=== PATIENT | female | born 1940 | race Caucasian/White ===

== ENCOUNTER 2018-06-23 21:00 | Inpatient (IN) ==
[2018-06-23] MEDS ORDERED: ONDANSETRON 4 MG/2 ML VIAL IV STA (23:14)
[2018-06-23] MEDS ORDERED: ASPIRIN 325 MG TABLET PO STA (23:14)
[2018-06-23 23:52] LABS: Basophils % 0.3 % (0.0-0.8); Eosinophils # 0.1 10*3/uL (0.0-0.87); Eosinophils % 1.4 % (0.00-10.9); Hematocrit 41.5 VOL% (35.7-47.0); Hemoglobin 13.9 GM/DL (12.0-16.0); Immature Granulocytes % 0.4 %; Immature Granulocytes Absolute 0.04 #; Lymphocytes # 1.8 10*3/uL (1.4-4.0); Lymphocytes % 18.1 % (21.3-54.2); Mean Corpuscular HGB Conc 33.5 GM/DL (32-36); Mean Corpuscular Hemoglobin 28 PG (27-34); Mean Corpuscular Volume 83.3 FL (87-102); Mean Platelet Volume 10.7 FL (9.6-12.0); Monocytes % 9.8 % (1.7-12.7); Neutrophils # 6.9 10*3/uL (1.4-7.4); Platelet Count 265 T/CUMM (130-400); Red Blood Count 4.98 MC/CUMM (3.8-5.5); White Blood Count 9.8 T/CUMM (4-12)
[2018-06-24 00:05] LABS: PT Patient Result 10.8 SECS; Partial Thromboplastin Time 25.9 SECS (0-40)
[2018-06-24 00:06] LABS: Alanine Aminotransferase 33 U/L (13-56); Alkaline Phosphatase 86 U/L (45-117); Aspartate Amino Transferase 31 U/L (0-37); Blood Urea Nitrogen 13 MG/DL (7-18); Calcium 8.8 MG/DL (8.5-10.1); Glucose 98 MG/DL (74-106); Osmolality,Calculated 263.5 MOS/KG (273-304); Sodium 132 MMOL/L (136-145); Total Protein 7.8 G/DL (6.4-8.3)
[2018-06-24 00:06] LABS: Apearance,Urine CLEAR (Clear); Bacteria,Urine Occasional /HPF (Few); Bilirubin,Urine Negative (Negative); Blood, Urine Negative (Negative); Glucose,Urine (UA) Negative (Negative); Ketones,Urine Negative (Negative); Nitrite,Urine Negative (Negative); Protein,Urine Negative; RBC,Urine 2 /HPF (0-4); Renal Epithelial Cells,Urine Occasional /HPF (<1); Urine Color Yellow (Yellow); Urine Urobilinogen < 2.0 EU/DL (0.2-1.0); WBC,Urine 11 /HPF (0-6)
[2018-06-24 00:12] LABS: Barbiturates Screen,Urine Negative (Negative); Benzodiazepines Screen,Urine Negative (Negative); Cannabinoid Screen,Urine Negative (Negative); Opiate Screen,Urine Negative (Negative); Phencyclidine Screen,Urine Negative (Negative)
[2018-06-24] MEDS ORDERED: LEVOFLOXACIN INJ 500 MG in PREMIX 1 EACH IV STA (00:30)
[2018-06-24] MEDS ORDERED: MORPHINE 4 MG/1 ML VIAL IV PRN (01:26)
[2018-06-24] MEDS ORDERED: ACETAMINOPHEN 325 MG TABLET PO PRN (01:26)
[2018-06-24] MEDS ORDERED: ONDANSETRON 4 MG/2 ML VIAL IV PRN (01:26)
[2018-06-24] MEDS: LEVOFLOXACIN INJ 500 MG in PREMIX 1 EACH IV SCH (02:12)
[2018-06-24] MEDS: SODIUM CHLORIDE 0.9% 1,000 ML IV SCH (02:12)
[2018-06-24 05:35] LABS: Basophils % 0.5 % (0.0-0.8); Eosinophils # 0.1 10*3/uL (0.0-0.87); Eosinophils % 1.5 % (0.00-10.9); Hemoglobin 12.9 GM/DL (12.0-16.0); Immature Granulocytes % 0.2 %; Immature Granulocytes Absolute 0.02 #; Lymphocytes # 1.8 10*3/uL (1.4-4.0); Lymphocytes % 20.2 % (21.3-54.2); Mean Corpuscular HGB Conc 33.1 GM/DL (32-36); Mean Corpuscular Hemoglobin 27 PG (27-34); Mean Corpuscular Volume 82.8 FL (87-102); Mean Platelet Volume 11.3 FL (9.6-12.0); Monocytes # 1.1 10*3/uL (0.11-0.8); Monocytes % 12.3 % (1.7-12.7); Neutrophils # 5.8 10*3/uL (1.4-7.4); Neutrophils % 65.3 % (38.7-73.9); Platelet Count 267 T/CUMM (130-400); Red Blood Count 4.71 MC/CUMM (3.8-5.5); Red Cell Distribution Width 12.7 % (9.3-17.3); White Blood Count 8.9 T/CUMM (4-12)
[2018-06-24 05:56] LABS: Albumin 3.3 G/DL (3.4-5.0); Calcium 8.3 MG/DL (8.5-10.1); Osmolality,Calculated 265.4 MOS/KG (273-304); Potassium 3.2 MMOL/L (3.5-5.1); Risk Ratio 2.78; Total Protein 6.8 G/DL (6.4-8.3); VLDL CHOLESTEROL 7.6 MG/DL
[2018-06-24] MEDS ORDERED: POTASSIUM CHLORIDE 20 MEQ TABLET PO PRN (06:03)
[2018-06-24] MEDS: POTASSIUM CHLORIDE 20 MEQ TABLET PO PRN ×4 (06:19→18:40)
[2018-06-24] MEDS: PANTOPRAZOLE 40 MG TABLET PO SCH (08:29)
[2018-06-24] MEDS: DOCUSATE SODIUM 100 MG CAPSULE PO SCH ×2 (08:29→22:12)
[2018-06-24] MEDS: ASPIRIN EC 325 MG TABLET PO SCH (08:29)
[2018-06-24] MEDS: ENOXAPARIN 40 MG/0.4 ML SYRINGE SUBCUT SCH (08:29)
[2018-06-24] MEDS ORDERED: ALPRAZolam 0.25 MG TABLET PO ONE (11:13)
[2018-06-25] MEDS: LEVOFLOXACIN INJ 500 MG in PREMIX 1 EACH IV SCH (03:43)
[2018-06-25] MEDS: SODIUM CHLORIDE 0.9% 1,000 ML IV SCH (03:43)
[2018-06-25 08:15] VITALS: BP 169/68
[2018-06-25] MEDS: ASPIRIN EC 325 MG TABLET PO SCH (10:03)
[2018-06-25] MEDS: DOCUSATE SODIUM 100 MG CAPSULE PO SCH (10:04)
[2018-06-25] MEDS: PANTOPRAZOLE 40 MG TABLET PO SCH (10:05)
[2018-06-25] MEDS: ENOXAPARIN 40 MG/0.4 ML SYRINGE SUBCUT SCH (10:05)
[2018-06-25] MEDS: POTASSIUM CHLORIDE 20 MEQ TABLET PO PRN (10:06)
== END 2018-06-25 12:35 | disposition home or self-care (01) | DRG 69 ==
LOC: N.ED 21:00 → N.EDINP 23:53 → N.TELES 06-24 01:03
PROVIDERS: ADMIT Family Medicine; ATTEND Family Medicine